=== PATIENT | male | born 1975 | race Caucasian/White ===

== ENCOUNTER 2019-10-27 12:26 | Emergency (ER) | payer MEDICAID, OTHER, SELFPAY ==
[2019-10-27] MEDS ORDERED: fentaNYL 100 MCG/2 ML SDV IVPUSH ONE ×2 (12:40→14:02)
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
[2019-10-27] MEDS ORDERED: Sodium Chloride 0.9% 10 ML Syringe FLUSH PRN (12:41)
[2019-10-27] MEDS ORDERED: HYDROmorphone 1 MG/ML Syringe IVPUSH ONE (14:27)
[2019-10-27] MEDS ORDERED: Ondansetron 4 MG/2 ML SDV IVPUSH ONE (14:27)
[2019-10-27] MEDS ORDERED: Bacitracin/Neomycin/Polymyxin B Oint 28.4 GM Tube TOP ONE (14:30)
[2019-10-27] MEDS: Bacitracin/Neomycin/Polymyxin B Oint 28.4 GM Tube ONE ×2 (14:31→15:58)
== END 2019-10-27 15:20 | disposition home or self-care (01) ==
LOC: KA.ED 12:26
DX: T23.261A Burn of second degree of back of right hand, initial encounter (principal); T23.212A Burn of second degree of left thumb (nail), initial encounter; T20.14XA Burn of first degree of nose (septum), initial encounter; T20.112A Burn of first degree of left ear [any part, except ear drum], initial encounter; X08.8XXA Exposure to other specified smoke, fire and flames, initial encounter
CPT/HCPCS: 16020; 96374; 96375; 96376; 99283; 99283-25; J1170; J2405; J3010